=== PATIENT | male | born 1965 | race Caucasian/White ===

== ENCOUNTER 2024-02-18 16:28 | Emergency (ER) | payer MEDICARE, MEDICAID ==
[~2024-02-18] VITALS: Ht 195.6 cm; Wt 68.2 kg
[~2024-02-18 16:28] MED LIST: NO HOME MEDS
[2024-02-18 20:11] LABS: CLARITY,URINE TURBID (Clear)
[2024-02-18 20:12] LABS: COLOR,URINE ORANGE (Yellow)
[2024-02-18 20:15] LABS: UA COLLECTION TYPE CLN CATCH MIDSTREAM
[2024-02-18 20:16] LABS: BACTERIA,URINE 3+ /HPF (Neg); SQUAMOUS EPITHELIAL CELL,UR FEW /LPF (FEW)
[2024-02-18 20:17] LABS: MUCUS STRANDS FEW /LPF (Neg); RBC,URINE 0-2 /HPF (0-2); WBC,URINE TNTC /HPF (0-4)
[2024-02-18] MEDS: ketorolac trometh 15mg/ml vial 15 MG/ML ML IM ONE (20:21)
[2024-02-18] MEDS ORDERED: PHEN-716 PO (21:09)
[2024-02-18] MEDS ORDERED: DOCU-148 PO (21:09)
[2024-02-18] MEDS ORDERED: CEPH-585 PO (21:09)
[2024-02-18] MEDS ORDERED: POLY119P2 PO (21:09)
[2024-02-18] MEDS: CefTRIAXone 1000mg IM Kit (w/lidocaine diluent) IM ONE (21:24)
[2024-02-18] MEDS: phenazopyridine 100mg tablet PO ONE (21:25)
[2024-02-18 21:47] VITALS: BP 145/86; PULSE 75; RESP 17; TEMP 99.1; O2SAT 99
== END 2024-02-18 21:49 | disposition home or self-care (01) ==
LOC: ER 16:29
DX: N39.0 Urinary tract infection, site not specified (principal); K59.00 Constipation, unspecified; R51.9 Headache, unspecified
CPT/HCPCS: 74018; 81001; 87088; 96372; 99284; J0696; J1885; 87077; 87186